=== PATIENT | female | born 2000 | race Caucasian/White ===

== ENCOUNTER 2019-12-28 17:11 | Emergency (ER) | payer MEDICAID ==
[~2019-12-28] VITALS: Ht 170.2 cm; Wt 75.0 kg
[~2019-12-28 17:11] MED LIST: KEPPSOL; LEVE500T19 PO
[2019-12-28] MEDS ORDERED: SODIUM CHLORIDE 0.9% 1,000 ML IV ONE (18:17)
[2019-12-28 18:43] LABS: BASOPHILS % 0.3 % (0.0-2.0); EOSINOPHILS % 0.3 % (0.0-5.0); HEMATOCRIT. 38.5 % (36.0-48.0); HEMOGLOBIN. 13.3 g/dL (12.0-16.0); LYMPHOCYTES % 10.7 % (20.0-50.0); MEAN CORPUSCULAR HEMOGLOBIN 29.9 pg (28.0-32.0); MEAN CORPUSCULAR VOLUME 86.4 fL (81.0-99.0); MEAN PLATELET VOLUME 8.6 fl (7.4-10.4); MONOCYTES % 8.2 % (2.0-8.0); NEUTROPHILS % 80.5 % (40.0-76.0); PLATELET 253 x1000/uL (130-400); RED BLOOD CELL COUNT 4.45 mill/uL (4.2-5.4); RED CELL DISTRIBUTION WIDTH 12.5 % (11.6-14.6)
[2019-12-28 18:49] LABS: CHLORIDE 104 mEq/L (98-107)
[2019-12-28 18:53] LABS: ETHANOL BLOOD < 10 mg/dL
[2019-12-28 19:56] LABS: CLARITY URINE CLOUDY (CLEAR); COLOR URINE YELLOW (YELLOW); KETONES URINE 2+ (NEGATIVE); LEUKOCYTE ESTERASE URINE NEGATIVE (NEGATIVE); NITRITE URINE NEGATIVE (NEGATIVE); OCCULT BLOOD URINE NEGATIVE (NEGATIVE); PROTEIN URINE NEGATIVE (NEGATIVE); UROBILINOGEN URINE 0.2 E.U./dL (0.2-1.0)
[2019-12-28 20:14] LABS: *BARBITURATES SCREEN URINE NEGATIVE (NEGATIVE)
[2019-12-28 20:15] LABS: *AMPHETAMINES SCREEN URINE NEGATIVE (NEGATIVE); *BENZODIAZEPINES SCREEN URINE NEGATIVE (NEGATIVE); *COCAINE SCREEN URINE NEGATIVE (NEGATIVE); METHADONE URINE SCREEN NEGATIVE (NEGATIVE); OPIATES URINE SCREEN NEGATIVE (NEGATIVE); PHENCYCLIDINE URINE SCREEN NEGATIVE (NEGATIVE)
[2019-12-28 20:16] LABS: CANNABINOID URINE SCREEN NEGATIVE (NEGATIVE)
[2019-12-28] MEDS ORDERED: CEPHALEXIN 250MG CAPSULE PO ONE (20:30)
[2019-12-28 20:55] VITALS: BP 108/70
== END 2019-12-28 20:57 | disposition home or self-care (01) ==
LOC: ER 17:11
DX: G40.909 Epilepsy, unspecified, not intractable, without status epilepticus (principal); R82.71 Bacteriuria
CPT/HCPCS: 36415; 71045; 80053; 80305; 80320; 81003; 81025; 85025; 87086; 93005; 96360; 99285; J7030; G0480

== ENCOUNTER 2020-01-20 18:26 | Emergency (ER) | payer MEDICAID ==
[~2020-01-20] VITALS: Ht 165.1 cm; Wt 61.0 kg
[2020-01-20 20:23] VITALS: BP 141/78
== END 2020-01-20 20:52 | disposition home or self-care (01) ==
LOC: ER 18:26
DX: R56.9 Unspecified convulsions (principal)
CPT/HCPCS: 99282

== ENCOUNTER 2021-09-27 20:25 | Emergency (ER) | payer MEDICAID ==
[~2021-09-27] VITALS: Ht 160 cm; Wt 59.0 kg
[2021-09-27] MEDS ORDERED: ACETAMINOPHEN 325MG TABLET PO STA (21:14)
[2021-09-27] MEDS ORDERED: SODIUM CHLORIDE 0.9% 1,000 ML IV ONE (21:15)
[2021-09-27] MEDS ORDERED: LORAZEPAM 1MG TABLET PO ONE (21:15)
[2021-09-27 21:32] LABS: HEMOGLOBIN. 12.3 g/dL (12.0-16.0); MEAN CORPUSCULAR VOLUME 87.7 fL (81.0-99.0); MEAN PLATELET VOLUME 7.5 fl (7.4-10.4); PLATELET 273 x1000/uL (130-400); RED BLOOD CELL COUNT 4.11 mill/uL (4.2-5.4)
[2021-09-27 21:39] LABS: CHLORIDE 93 mEq/L (98-107)
[2021-09-27 21:46] LABS: CREATINE KINASE 66 IU/L (26-192); ETHANOL BLOOD < 10 mg/dL
[2021-09-27 21:47] LABS: HCG SCREEN NEGATIVE
[2021-09-27 22:14] LABS: PLATELET ESTIMATE NORMAL
[2021-09-28 00:15] VITALS: BP 111/62
== END 2021-09-28 00:15 | disposition home or self-care (01) ==
LOC: ER 20:25
DX: G40.909 Epilepsy, unspecified, not intractable, without status epilepticus (principal); E87.1 Hypo-osmolality and hyponatremia; G80.9 Cerebral palsy, unspecified
CPT/HCPCS: 36415; 71045; 80053; 80320; 82550; 84703; 85025; 93005; 96360; 99285; J7030; G0480